=== PATIENT | female | born 1955 | race Two or more races ===

== ENCOUNTER 2023-08-11 08:25 | Outpatient (CLI) | payer MEDICARE, BC | END 2023-08-11 08:26 | disposition home or self-care (01) | LOC: SCSMRI 08:25 | PROVIDERS: ATTEND Internal Medicine Gastroenterology | DX: R16.0 Hepatomegaly, not elsewhere classified (principal); K76.89 Other specified diseases of liver; R59.0 Localized enlarged lymph nodes | CPT/HCPCS: 74183; 82565 ==